=== PATIENT | male | born 1960 | race African-American/Black ===

== ENCOUNTER → 2025-08-24 | Day surgery (SDC) | payer MEDICAID ==
[~2025-08-24] VITALS: Ht 190.5 cm; Wt 113.4 kg
[~2025-08-24] MED LIST: ACETAMINOPHEN 1,000MG/100ML PREMIX IV PRN; APIX5TAB PO; BALANCED SALT IRRIG SOLN 15ML ONE; BALANCED SALT IRRIG SOLN COMB1 500ML OP NR; CARV3.1242 PO; CIPROFLOXACIN 0.3% OPHTH SOLN 2.5ML ONE; CYCLOPENTOLATE HCL 1% OPHTH DROPS 2ML ONE; CYCLOPENTOLATE HCL 1% OPHTH DROPS 2ML RIGHTEYE SCH; FAMOTIDINE 20MG/2ML VIAL IV PRN; FERR325T6 PO; FURO40TA5 PO; GABA-1180 PO; HYALURONATE SODIUM 10MG/ML 0.55ML SYRINGE IO ONE; HYDRALAZINE 20MG/ML VIAL IV PRN; HYDROMORPHONE HCL/PF 1MG/ML INJ IV PRN; LABETALOL 5MG/ML 4ML INJ IV PRN; LACTATED RINGERS 1,000 ML IV SCH; LIDOCAINE HCL 2% 5ML SYRINGE IV ONE; LOSA25TA26 PO; MEPERIDINE HCL/PF 25MG/ML CPJ IV PRN; ONDANSETRON HCL 4MG/2ML INJ IV PRN; PHENYLEPHRINE HCL 10% OPHTH DROPS 5ML ONE; PHENYLEPHRINE HCL 10% OPHTH DROPS 5ML RIGHTEYE SCH; POTA-205 PO; PREDNISOLONE ACETATE 1% OPHTH DROPS 5ML ONE; TETRACAINE 0.5% OPHTH DROPS 4ML ONE; TROPICAMIDE 1% OPHTH DROPS 15ML ONE; TROPICAMIDE 1% OPHTH DROPS 15ML RIGHTEYE SCH
== END | disposition home or self-care (01) ==
LOC: OR 08:40
PROVIDERS: ATTEND Ophthalmology
DX: H25.89 Other age-related cataract (principal); I11.0 Hypertensive heart disease with heart failure; I50.9 Heart failure, unspecified; Z79.899 Other long term (current) drug therapy; Z98.890 Other specified postprocedural states; Z86.2 Personal history of diseases of the blood and blood-forming organs and certain disorders involving the immune mechanism
CPT/HCPCS: 66984; 84132; 36415; J3490; J2003; A4217; V2632